=== PATIENT | male | born 1990 | race Caucasian/White ===

== ENCOUNTER 2019-03-24 17:06 | Emergency (ER) | payer SELFPAY ==
--- NOTE | 2019-03-24 17:36 | NUR ---
ED Nurse Note: Called patient. Patient not in waiting room.
--- NOTE | 2019-03-24 17:50 | NUR ---
ED Nurse Note: Called patient. Patient not in waiting room.
== END 2019-03-24 17:50 | disposition left against medical advice (07) ==
LOC: EMR 17:50
DX: Z53.21 Procedure and treatment not carried out due to patient leaving prior to being seen by health care provider (principal)